=== PATIENT | male | born 2000 | race Caucasian/White ===

== ENCOUNTER → 2023-02-09 | Outpatient (REF) | LOC: M EMP 09:27 | PROVIDERS: ATTEND Family Medicine | DX: Z11.52 Encounter for screening for COVID-19 (principal) ==

== ENCOUNTER → 2023-02-16 | Outpatient (REF) | LOC: M EMP 08:01 | PROVIDERS: ATTEND Family Medicine | DX: Z11.52 Encounter for screening for COVID-19 (principal) ==

== ENCOUNTER → 2023-02-23 | Outpatient (REF) | LOC: M EMP 08:37 | PROVIDERS: ATTEND Family Medicine | DX: Z11.52 Encounter for screening for COVID-19 (principal) ==

== ENCOUNTER 2023-08-08 17:08 | Inpatient (IN) | payer MEDICAID, SELFPAY ==
[~2023-08-08] VITALS: Ht 177.8 cm; Wt 77.3 kg
[2023-08-08 17:53] LABS: HEMATOCRIT 48.5 % (42.0-52.0); HEMOGLOBIN 16.5 g/dl (13.5-17.5); MEAN CORPUSCULAR HEMOGLOBIN 31.3 pg (27.0-33.0); PLATELET COUNT, AUTOMATED 315 10^3/uL (150-450); RED BLOOD COUNT 5.27 10^6/uL (4.30-6.10); WHITE BLOOD COUNT 8.3 10^3/uL (4.0-10.0)
[2023-08-08 18:21] LABS: ETHYL ALCOHOL (ETHANOL) < 0.003 % (0.000-0.010)
[2023-08-08 18:23] LABS: ACETAMINOPHEN LEVEL < 2.0 UG/ML (10.0-20.0); ALBUMIN 4.7 G/DL (3.2-5.2); ALKALINE PHOSPHATASE 71 U/L (46-116); ALT/SGPT 24 U/L (7.0-40); AST/SGOT < 8 U/L (<34); BILIRUBIN,DIRECT 0.3 MG/DL (<0.4); BILIRUBIN,TOTAL 0.8 MG/DL (0.3-1.2); BLOOD UREA NITROGEN 11 MG/DL (9-23); CALCIUM LEVEL 9.9 MG/DL (8.5-10.1); CARBON DIOXIDE LEVEL 30 MMOL/L (20-31); CHLORIDE LEVEL 103 MMOL/L (98-107); CREATININE FOR GFR 0.95 MG/DL (0.70-1.30); GLOMERULAR FILTRATION RATE > 60.0 (>60); GLUCOSE, FASTING 76 MG/DL (60-100); POTASSIUM SERUM 3.5 MMOL/L (3.5-5.1); SALICYLATE LEVEL < 3.0 MG/DL (<30); SODIUM LEVEL 140 MMOL/L (136-145); TOTAL PROTEIN 7.8 G/DL (5.7-8.2)
[2023-08-08 18:27] LABS: THYROID STIMULATING HORMONE 1.913 uIU/ML (0.55-4.78)
[2023-08-08 19:23] LABS: AMPHETAMINES LEVEL URINE NEGATIVE (NEGATIVE); BARBITURATES URINE NEGATIVE (NEGATIVE); BENZODIAZEPINES URINE NEGATIVE (NEGATIVE); COCAINE METABOLITE URINE NEGATIVE (NEGATIVE); METHADONE URINE NEGATIVE (NEGATIVE); OPIATES URINE NEGATIVE (NEGATIVE); PHENCYCLIDINE URINE NEGATIVE (NEGATIVE)
[2023-08-08 19:24] LABS: CANNABINOIDS URINE POSITIVE (NEGATIVE)
[2023-08-08] MEDS ORDERED: HOME MED LIST COMPLETE! XX SCH (20:25)
[2023-08-10] MEDS ORDERED: ACETAMINOPHEN TAB 650MG DOSE (2X325MG) PO PRN (14:30)
[2023-08-10] MEDS ORDERED: MAALOX 30 ML SUSP *UDC PO PRN (14:30)
[2023-08-10] MEDS ORDERED: IBUPROFEN 400MG TAB PO PRN (14:30)
[2023-08-10] MEDS ORDERED: diphenhydrAMINE 25MG CAP PO PRN (14:30)
[2023-08-10] MEDS ORDERED: MOM 30ML SUSPENSION UDC PO PRN (14:30)
[2023-08-10] MEDS ORDERED: traZODone 50 MG TAB PO PRN (14:30)
[2023-08-10 17:36] VITALS: BP 142/83; TEMP 96.4; O2SAT 95
[2023-08-11 06:34] VITALS: BP 139/76; TEMP 98; O2SAT 98
[2023-08-11 16:24] VITALS: BP 127/70; TEMP 99.1; O2SAT 99
[2023-08-12 06:34] VITALS: BP 113/58; TEMP 97.2; O2SAT 98
[2023-08-12 16:23] VITALS: BP 127/87; TEMP 98.7; O2SAT 98
[2023-08-13 06:05] VITALS: BP 129/63; TEMP 97.8; O2SAT 100
[2023-08-13 19:14] VITALS: BP 142/76; TEMP 99.3
[2023-08-14 06:10] VITALS: BP 124/82; TEMP 98.3; O2SAT 99
[2023-08-14 16:13] VITALS: BP 120/65; TEMP 98.8; O2SAT 100
[2023-08-15 06:38] VITALS: BP 121/65; TEMP 97.1; O2SAT 97
[2023-08-15 16:12] VITALS: BP 121/62; TEMP 98.9; O2SAT 100
[2023-08-16 06:23] VITALS: BP 131/63; TEMP 97.8; O2SAT 100
[2023-08-16 16:09] VITALS: BP 131/60; TEMP 98.9; O2SAT 98
[2023-08-17 06:21] VITALS: BP 119/55; TEMP 97.6; O2SAT 100
[2023-08-17 19:01] VITALS: BP 145/70; TEMP 98.3
[2023-08-18 05:43] VITALS: BP 108/60; TEMP 97.8; O2SAT 98
== END 2023-08-18 11:25 | disposition home or self-care (01) | DRG 754 ==
LOC: M ED 17:08 → M ED INP 08-10 14:28 → M PSY 08-10 16:06
PROVIDERS: ADMIT Student in an Organized Health Care Education/Training Program; ATTEND Student in an Organized Health Care Education/Training Program
DX: F32.A Depression, unspecified (principal); R45.851 Suicidal ideations; F43.25 Adjustment disorder with mixed disturbance of emotions and conduct; F12.90 Cannabis use, unspecified, uncomplicated